=== PATIENT | female | born 1970 | race Caucasian/White ===

== ENCOUNTER 2017-05-01 21:40 | Observation (INO) | payer OTHER ==
[~2017-05-01] VITALS: Ht 160 cm; Wt 54.0 kg
[2017-05-01] MEDS ORDERED: OXCARBAZEPINE 150MG TABLET PO STA ×2 (22:18→23:50)
[2017-05-01] MEDS ORDERED: SODIUM CHLORIDE 0.9% 1000ML BAG (SEPSIS BOLUS) IV ONE (22:30)
[2017-05-01 22:42] LABS: EOSINOPHILS % 2.4 % (0.0-5.0); HEMATOCRIT. 38.5 % (36.0-48.0); HEMOGLOBIN. 13.5 g/dL (12.0-16.0); LYMPHOCYTES % 27.1 % (20.0-50.0); MEAN CORPUSCULAR HEMOGLOBIN 32.8 pg (28.0-32.0); MEAN CORPUSCULAR VOLUME 93.3 fL (81.0-99.0); MONOCYTES % 6.6 % (2.0-8.0); NEUTROPHILS % 62.9 % (40.0-76.0); PLATELET 243 x1000/uL (130-400); RED BLOOD CELL COUNT 4.13 mill/uL (4.2-5.4); RED CELL DISTRIBUTION WIDTH 12.6 % (11.6-14.6)
[2017-05-01 22:48] LABS: CHLORIDE 102 mEq/L (98-107)
[2017-05-01 22:51] LABS: CARBON DIOXIDE 27 mEq/L (21-32); HCG SCREEN NEGATIVE
[2017-05-01 22:54] LABS: ETHANOL BLOOD < 10 mg/dL
[2017-05-02] MEDS ORDERED: LEVOFLOXACIN 750MG PREMIX 150 ML IV ONE (01:15)
[2017-05-02 01:37] LABS: CLARITY URINE CLEAR (CLEAR); COLOR URINE YELLOW (YELLOW); GLUCOSE URINE NEGATIVE (NEGATIVE); KETONES URINE NEGATIVE (NEGATIVE); LEUKOCYTE ESTERASE URINE NEGATIVE (NEGATIVE); NITRITE URINE NEGATIVE (NEGATIVE); OCCULT BLOOD URINE TRACE (NEGATIVE); PROTEIN URINE NEGATIVE (NEGATIVE); SPECIFIC GRAVITY URINE 1.014 (1.005-1.030); UROBILINOGEN URINE 0.2 E.U./dL (0.2-1.0)
[2017-05-02 01:48] LABS: *AMPHETAMINES SCREEN URINE NEGATIVE (NEGATIVE); *BARBITURATES SCREEN URINE NEGATIVE (NEGATIVE); *BENZODIAZEPINES SCREEN URINE NEGATIVE (NEGATIVE); METHADONE URINE SCREEN NEGATIVE (NEGATIVE); OPIATES URINE SCREEN NEGATIVE (NEGATIVE); PHENCYCLIDINE URINE SCREEN NEGATIVE (NEGATIVE)
[2017-05-02 02:14] LABS: *COCAINE SCREEN URINE NEGATIVE (NEGATIVE); CANNABINOID URINE SCREEN PRESUMTIVE POSITIVE (NEGATIVE)
[2017-05-02] MEDS ORDERED: ONDANSETRON HCL 4MG/2ML VIAL IV PRN (04:00)
[2017-05-02] MEDS ORDERED: ACETAMINOPHEN 325MG TABLET PO PRN (04:00)
[2017-05-02] MEDS ORDERED: DIPHENHYDRAMINE 50MG/ML VIAL IV PRN (04:00)
[2017-05-02] MEDS ORDERED: LORAZEPAM 2MG/ML CPJ IV PRN (04:00)
[2017-05-02] MEDS ORDERED: CLONIDINE 0.1MG TABLET PO PRN (04:00)
[2017-05-02] MEDS ORDERED: MAGNESIUM/ALUMINUM HYDROXIDE/SIMETHICONE 30ML UDC PO PRN (04:00)
[2017-05-02 06:16] VITALS: BP 113/77
[2017-05-02] MEDS: SODIUM CHLORIDE 0.9% INJ 3ML FLUSH IVF SCH ×2 (06:48→14:00)
[2017-05-02 08:00] VITALS: BP 114/78
[2017-05-02] MEDS ORDERED: OXCARBAZEPINE 300MG TABLET PO SCH (09:00)
[2017-05-02 12:00] VITALS: BP 115/78
[2017-05-02 14:58] VITALS: BP 115/78
[2017-05-02 16:00] VITALS: BP 119/82
== END 2017-05-02 16:22 | disposition home or self-care (01) ==
LOC: ER 22:00 → 7WST 05-02 00:01 → INTOOBSV 05-02 00:01 → EDBEDREQ 05-02 02:18 → ENRESERV 05-02 04:16
PROVIDERS: ADMIT Internal Medicine; ATTEND Internal Medicine
DX: G40.909 Epilepsy, unspecified, not intractable, without status epilepticus (principal); F12.929 Cannabis use, unspecified with intoxication, unspecified; I95.9 Hypotension, unspecified
CPT/HCPCS: 36415; 70450; 71010; 80053; 80305; 81001; 83605; 84484; 84703; 85025; 93005; 96361; 96365; 96366; 99285; G0378; G0482; J1956; J7030